=== PATIENT | female | born 1945 | race African-American/Black ===

== ENCOUNTER → 2016-06-11 | Outpatient (CLI) | payer OTHER ==
[~2016-06-11] MED LIST: BECL0.07 INH; FLU05NSL; LISI10TA6 PO; METO25TA62 PO; ROPI0.5T PO; SIMV-8 PO; SPIR25TA89 PO
[2016-06-11 11:25] LABS: Basophils # (auto) 0.2 uL; Basophils % (auto) 2.6 % (0.0-2.0); Eosinophils # (auto) 0.3 uL; Eosinophils % (auto) 4.5 % (0.0-7.0); Hematocrit 42.3 % (36.0-46.0); Hemoglobin 13.2 g/dL (12.2-16.2); Lymphocytes # (auto) 2.1 uL; Lymphocytes % (auto) 35.7 % (10.0-50.0); Mean Corpuscular Hemoglobin 28.5 pg (28.0-32.0); Mean Corpuscular Hgb Conc. 31.3 g/dL (32.0-36.0); Mean Corpuscular Volume 91.1 fL (80.0-100.0); Mean Platelet Volume 7.4 fL (7.4-10.4); Monocytes # (auto) 0.4 uL; Neutrophils # (auto) 2.8 uL; Neutrophils % (auto) 50.2 % (37.0-80.0); Platelet Count (auto) 317 10^3/uL (140-450); Red Cell Distribution Width 12.6 % (11.6-16.0); Urine Bilirubin Negative (Negative); Urine Blood TRACE /uL (Negative); Urine Color Yellow (Yellow); Urine Glucose Normal (Normal); Urine Ketone Negative (Negative); Urine Nitrite Negative (Negative); Urine RBC 3 /hpf (0 - 4); Urine Urobilinogen Normal (Negative); Urine pH 5.5 (5.0-8.0); White Blood Cell 5.8 10^3/uL (4.4-10.8)
[2016-06-11 11:43] LABS: BUN/Creatinine Ratio 22.8; Bilirubin, Total 0.4 mg/dL (0.2-1.0); Calcium 9.7 mg/dL (8.5-10.1); Potassium 4.1 mmol/L (3.5-5.1); Total Protein 7.6 g/dL (6.4-8.2); Uric Acid 3.7 mg/dL (2.6-6.0)
== END | disposition home or self-care (01) ==
LOC: LAB 09:52
DX: M25.50 Pain in unspecified joint (principal); I10 Essential (primary) hypertension; Z12.11 Encounter for screening for malignant neoplasm of colon
CPT/HCPCS: 36415; 80053; 80061; 81001; 84443; 84550; 85025; 85049; 85652; 86200; 86431

== ENCOUNTER → 2016-06-16 | Outpatient (CLI) | payer OTHER | END | disposition home or self-care (01) | LOC: LAB 08:43 | DX: M25.50 Pain in unspecified joint (principal); I10 Essential (primary) hypertension; Z12.11 Encounter for screening for malignant neoplasm of colon | CPT/HCPCS: 82270 ==

== ENCOUNTER → 2016-09-29 | Outpatient (CLI) | payer OTHER ==
[2016-09-29 13:49] LABS: Basophils # (auto) 0.1 uL; Basophils % (auto) 0.7 % (0.0-2.0); Eosinophils # (auto) 0.3 uL; Eosinophils % (auto) 4.1 % (0.0-7.0); Hematocrit 44.5 % (36.0-46.0); Hemoglobin 14.7 g/dL (12.2-16.2); Lymphocytes # (auto) 2.8 uL; Lymphocytes % (auto) 37.2 % (10.0-50.0); Mean Corpuscular Hemoglobin 29.6 pg (28.0-32.0); Mean Corpuscular Volume 89.8 fL (80.0-100.0); Mean Platelet Volume 7.4 fL (7.4-10.4); Monocytes # (auto) 0.2 uL; Monocytes % (auto) 2.7 % (0.0-12.0); Neutrophils # (auto) 4.1 uL; Neutrophils % (auto) 55.3 % (37.0-80.0); Platelet Count (auto) 302 10^3/uL (140-450); Red Cell Distribution Width 12.9 % (11.6-16.0); White Blood Cell 7.4 10^3/uL (4.4-10.8)
[2016-09-29 13:50] LABS: Urine Bilirubin Negative (Negative); Urine Blood 1+ /uL (Negative); Urine Color Yellow (Yellow); Urine Glucose Normal (Normal); Urine Ketone Negative (Negative); Urine Nitrite Negative (Negative); Urine RBC <1 /hpf (0 - 4); Urine Squamous Epithelial Cell FEW /hpf (<5); Urine Urobilinogen Normal (Negative)
[2016-09-29 14:07] LABS: Albumin 4.2 g/dL (3.4-5.0); Bilirubin, Total 0.6 mg/dL (0.2-1.0); Calcium 9.4 mg/dL (8.5-10.1); Potassium 3.7 mmol/L (3.5-5.1); Total Protein 8.2 g/dL (6.4-8.2)
== END | disposition home or self-care (01) ==
LOC: LAB 13:16
DX: I10 Essential (primary) hypertension (principal)
CPT/HCPCS: 36415; 80053; 80061; 81001; 82306; 84443; 85025

== ENCOUNTER 2016-10-12 08:41 | Emergency (ER) | payer OTHER ==
[~2016-10-12] VITALS: Ht 154.9 cm; Wt 53.5 kg
[2016-10-12 08:57] VITALS: BP 144/88
== END 2016-10-12 09:44 | disposition home or self-care (01) ==
LOC: ER 08:44
DX: J32.9 Chronic sinusitis, unspecified (principal); J45.909 Unspecified asthma, uncomplicated; E11.9 Type 2 diabetes mellitus without complications; I10 Essential (primary) hypertension

== ENCOUNTER 2016-12-20 09:25 | Emergency (ER) | payer OTHER ==
[~2016-12-20] VITALS: Ht 154.9 cm; Wt 34.5 kg
[2016-12-20 09:54] VITALS: BP 138/75
[2016-12-20] MEDS ORDERED: KETOROLAC TROMETH 30 MG/ML 1ML VIAL IM ONE (10:30)
== END 2016-12-20 10:48 | disposition home or self-care (01) ==
LOC: ER 09:25
DX: G43.909 Migraine, unspecified, not intractable, without status migrainosus (principal); H66.92 Otitis media, unspecified, left ear; J45.909 Unspecified asthma, uncomplicated; E11.9 Type 2 diabetes mellitus without complications; I10 Essential (primary) hypertension
CPT/HCPCS: 70450; 96372; 99284; J1885

== ENCOUNTER → 2017-03-30 | Outpatient (CLI) | payer OTHER ==
[2017-03-30 12:55] LABS: Potassium 3.6 mmol/L (3.5-5.1)
== END | disposition home or self-care (01) ==
LOC: LAB 12:19
PROVIDERS: ATTEND Internal Medicine
DX: I10 Essential (primary) hypertension (principal); E78.00 Pure hypercholesterolemia, unspecified
CPT/HCPCS: 36415; 84132; 84450; 84460

== ENCOUNTER → 2017-11-11 | Outpatient (CLI) | payer OTHER ==
[2017-11-11 12:20] LABS: Basophils # (auto) 0 uL; Basophils % (auto) 0.7 % (0.0-2.0); Eosinophils # (auto) 0.2 uL; Hematocrit 41.6 % (36.0-46.0); Hemoglobin 13.7 g/dL (12.2-16.2); Lymphocytes # (auto) 2.2 uL; Lymphocytes % (auto) 39.9 % (10.0-50.0); Mean Corpuscular Hemoglobin 29.8 pg (28.0-32.0); Mean Corpuscular Volume 90.2 fL (80.0-100.0); Monocytes # (auto) 0.3 uL; Monocytes % (auto) 4.9 % (0.0-12.0); Neutrophils # (auto) 2.8 uL; Neutrophils % (auto) 50.5 % (37.0-80.0); Nucleated Red Blood Cells % 0.1 %; Platelet Count (auto) 298 10^3/uL (140-450); Red Blood Cells 4.62 10^6/uL (4.0-5.20); Red Cell Distribution Width 12.9 % (11.8-14.3); White Blood Cell 5.4 10^3/uL (4.4-10.8)
[2017-11-11 12:45] LABS: Urine Bacteria NONE SEEN /hpf (None Seen); Urine Blood Negative /uL (Negative); Urine Specific Gravity 1.015 (1.001-1.035); Urine WBC 1 /hpf (0 - 5)
[2017-11-11 13:39] LABS: Albumin 4.2 g/dL (3.4-5.0); BUN/Creatinine Ratio 17.1; Bilirubin, Total 0.5 mg/dL (0.2-1.0); Calcium 9.5 mg/dL (8.5-10.1); Magnesium 2.7 mg/dL (1.6-2.6); Potassium 3.5 mmol/L (3.5-5.1); Total Protein 8.3 g/dL (6.4-8.2)
[2017-11-12 10:07] LABS: Immunoglobulin G, Serum 950 mg/dL (700-1600)
== END | disposition home or self-care (01) ==
LOC: LAB 11:30
PROVIDERS: ATTEND Internal Medicine
DX: I10 Essential (primary) hypertension (principal); J30.9 Allergic rhinitis, unspecified; M81.0 Age-related osteoporosis without current pathological fracture; G25.81 Restless legs syndrome; E78.00 Pure hypercholesterolemia, unspecified; E11.9 Type 2 diabetes mellitus without complications
CPT/HCPCS: 36415; 80053; 80061; 81001; 82043; 82306; 82784; 83735; 84439; 84443; 85025; 85652

== ENCOUNTER → 2018-04-28 | Outpatient (CLI) | payer OTHER ==
[~2018-04-28] MED LIST changes: +SPIR25TA8 PO; -SPIR25TA89 PO
[2018-04-28 11:39] LABS: Potassium 4.3 mmol/L (3.5-5.1)
== END | disposition home or self-care (01) ==
LOC: LAB 10:49
PROVIDERS: ATTEND Internal Medicine
DX: I10 Essential (primary) hypertension (principal); G25.81 Restless legs syndrome; E78.5 Hyperlipidemia, unspecified
CPT/HCPCS: 36415; 84132; 84450; 84460

== ENCOUNTER → 2018-09-29 | Outpatient (CLI) | payer OTHER ==
[2018-09-29 12:55] LABS: Basophils # (auto) 0.1 uL; Basophils % (auto) 0.8 % (0.0-2.0); Eosinophils # (auto) 0.2 uL; Eosinophils % (auto) 3.6 % (0.0-7.0); Hematocrit 41.8 % (36.0-46.0); Lymphocytes # (auto) 2.2 uL; Lymphocytes % (auto) 34.6 % (10.0-50.0); Mean Corpuscular Hemoglobin 30.4 pg (28.0-32.0); Mean Corpuscular Hgb Conc. 33.5 g/dL (32.0-36.0); Mean Corpuscular Volume 90.9 fL (80.0-100.0); Monocytes # (auto) 0.3 uL; Monocytes % (auto) 4.9 % (0.0-12.0); Neutrophils # (auto) 3.5 uL; Neutrophils % (auto) 56.1 % (37.0-80.0); Platelet Count (auto) 300 10^3/uL (140-450); Red Cell Distribution Width 13.3 % (11.8-14.3); White Blood Cell 6.3 10^3/uL (4.4-10.8)
[2018-09-29 13:15] LABS: Urine Bacteria NONE SEEN /hpf (None Seen); Urine Blood TRACE /uL (Negative); Urine WBC <1 /hpf (0 - 5)
[2018-09-29 13:31] LABS: Albumin 4.4 g/dL (3.4-5.0); Calcium 9.9 mg/dL (8.5-10.1); Potassium 3.8 mmol/L (3.5-5.1)
[2018-09-29 13:35] LABS: BUN/Creatinine Ratio 16.5; Bilirubin, Total 0.5 mg/dL (0.2-1.0); Total Protein 8.2 g/dL (6.4-8.2)
== END | disposition home or self-care (01) ==
LOC: LAB 12:02
PROVIDERS: ATTEND Internal Medicine
DX: I10 Essential (primary) hypertension (principal); M81.8 Other osteoporosis without current pathological fracture
CPT/HCPCS: 36415; 80053; 80061; 81001; 82043; 82306; 84439; 84443; 85025; 85652

== ENCOUNTER → 2019-04-11 | Outpatient (CLI) | payer OTHER ==
[~2019-04-11] MED LIST changes: -ROPI0.5T PO; +ROPI0.5T16 PO
[2019-04-11 10:45] LABS: Urine Bacteria NONE SEEN /hpf (None Seen); Urine Blood Negative /uL (Negative); Urine Mucus FEW (None Seen); Urine Specific Gravity 1.012 (1.001-1.035); Urine WBC 1 /hpf (0 - 5)
[2019-04-11 11:13] LABS: Basophils # (auto) 0.1 uL; Basophils % (auto) 1.3 % (0.0-2.0); Eosinophils # (auto) 0.2 uL; Eosinophils % (auto) 3.6 % (0.0-7.0); Hematocrit 38.5 % (36.0-46.0); Hemoglobin 13.2 g/dL (12.2-16.2); Lymphocytes % (auto) 30.7 % (10.0-50.0); Mean Corpuscular Hemoglobin 30.3 pg (28.0-32.0); Mean Corpuscular Hgb Conc. 34.2 g/dL (32.0-36.0); Mean Corpuscular Volume 88.8 fL (80.0-100.0); Monocytes # (auto) 0.3 uL; Neutrophils # (auto) 3.8 uL; Neutrophils % (auto) 59.4 % (37.0-80.0); Platelet Count (auto) 296 10^3/uL (140-450); Red Blood Cells 4.34 10^6/uL (4.0-5.20); Red Cell Distribution Width 13.3 % (11.8-14.3); White Blood Cell 6.4 10^3/uL (4.4-10.8)
[2019-04-11 11:17] LABS: Albumin 4.3 g/dL (3.4-5.0); BUN/Creatinine Ratio 19.2; Bilirubin, Total 0.4 mg/dL (0.2-1.0); Calcium 9.7 mg/dL (8.5-10.1); Total Protein 8.3 g/dL (6.4-8.2); Uric Acid 3.4 mg/dL (2.6-6.0)
== END | disposition home or self-care (01) ==
LOC: LAB 10:19
PROVIDERS: ATTEND Internal Medicine
DX: E78.5 Hyperlipidemia, unspecified (principal); M25.50 Pain in unspecified joint; R10.2 Pelvic and perineal pain
CPT/HCPCS: 36415; 80053; 81001; 84550; 85025; 86200; 86431

== ENCOUNTER → 2019-06-23 | Outpatient (CLI) | payer OTHER ==
[~2019-06-23] MED LIST changes: -METO25TA62 PO; +METO25TA93 PO
== END | disposition home or self-care (01) ==
LOC: LAB 12:18
PROVIDERS: ATTEND Internal Medicine
DX: M25.549 Pain in joints of unspecified hand (principal)
CPT/HCPCS: 36415; 82607; 82784; 84550; 86225; 86235; 86334

== ENCOUNTER → 2019-07-21 | Outpatient (CLI) | payer OTHER | END | disposition home or self-care (01) | LOC: LAB 09:38 | PROVIDERS: ATTEND Specialist | DX: N83.299 Other ovarian cyst, unspecified side (principal) | CPT/HCPCS: 82378; 86301; 86304 ==

== ENCOUNTER → 2019-11-14 | Outpatient (CLI) | payer OTHER ==
[2019-11-14 11:19] LABS: Basophils # (auto) 0 10 ^3/uL (0-0.2); Basophils % (auto) 0.1 % (0.0-2.0); Eosinophils # (auto) 0.2 10 ^3/uL (0-0.8); Eosinophils % (auto) 2.3 % (0.0-7.0); Hematocrit 40.5 % (36.0-46.0); Hemoglobin 13.2 g/dL (12.2-16.2); Lymphocytes # (auto) 2.1 10 ^3/uL (0.4-5.4); Lymphocytes % (auto) 30.6 % (10.0-50.0); Mean Corpuscular Hemoglobin 29.9 pg (28.0-32.0); Mean Corpuscular Hgb Conc. 32.6 g/dL (32.0-36.0); Mean Corpuscular Volume 91.9 fL (80.0-100.0); Monocytes # (auto) 0.4 10 ^3/uL (0-1.3); Monocytes % (auto) 5.4 % (0.0-12.0); Neutrophils # (auto) 4.2 10 ^3/uL (1.6-8.6); Neutrophils % (auto) 61.6 % (37.0-80.0); Nucleated Red Blood Cells % 0.1 %; Platelet Count (auto) 275 10^3/uL (140-450); Red Blood Cells 4.41 10^6/uL (4.0-5.20); White Blood Cell 6.8 10^3/uL (4.4-10.8)
[2019-11-14 12:03] LABS: Potassium 3.4 mmol/L (3.5-5.1)
[2019-11-14 12:06] LABS: Urine Bacteria NONE SEEN /hpf (None Seen); Urine Blood TRACE /uL (Negative); Urine Specific Gravity 1.014 (1.001-1.035); Urine WBC 1 /hpf (0 - 5)
[2019-11-14 12:13] LABS: Albumin 3.8 g/dL (3.4-5.0); BUN/Creatinine Ratio 22.8; Bilirubin, Total 0.4 mg/dL (0.2-1.0); Calcium 9.4 mg/dL (8.5-10.1); Total Protein 7.7 g/dL (6.4-8.2)
== END | disposition home or self-care (01) ==
LOC: LAB 10:52
PROVIDERS: ATTEND Internal Medicine
DX: I10 Essential (primary) hypertension (principal)
CPT/HCPCS: 36415; 80053; 80061; 81001; 84439; 84443; 85025; 85652

== ENCOUNTER → 2020-01-09 | Outpatient (CLI) | payer OTHER ==
[~2020-01-09] MED LIST changes: +LISI-648 PO; -LISI10TA6 PO
== END | disposition home or self-care (01) ==
LOC: LAB 11:34
PROVIDERS: ATTEND Internal Medicine
DX: Z01.812 Encounter for preprocedural laboratory examination (principal)
CPT/HCPCS: 36415; 82565; 84520

== ENCOUNTER → 2020-01-24 | Outpatient (CLI) | payer OTHER | END | disposition home or self-care (01) | LOC: LAB 10:28 | PROVIDERS: ATTEND Internal Medicine | DX: R22.0 Localized swelling, mass and lump, head (principal); R07.0 Pain in throat | CPT/HCPCS: 36415; 82565; 84520 ==

== ENCOUNTER → 2020-02-20 | Outpatient (CLI) | payer OTHER ==
[2020-02-20 10:37] LABS: Urine Bacteria NONE SEEN /hpf (None Seen); Urine Blood TRACE /uL (Negative); Urine Specific Gravity 1.011 (1.001-1.035); Urine WBC <1 /hpf (0 - 5)
== END | disposition home or self-care (01) ==
LOC: LAB 10:02
PROVIDERS: ATTEND Specialist
DX: N39.0 Urinary tract infection, site not specified (principal)
CPT/HCPCS: 81001

== ENCOUNTER → 2020-08-24 | Outpatient (CLI) | payer OTHER ==
[2020-08-24 11:11] LABS: Basophils # (auto) 0.1 10 ^3/uL (0-0.2); Basophils % (auto) 0.8 % (0.0-2.0); Eosinophils # (auto) 0.2 10 ^3/uL (0-0.8); Eosinophils % (auto) 2.3 % (0.0-7.0); Hematocrit 40.7 % (36.0-46.0); Hemoglobin 13.7 g/dL (12.2-16.2); Lymphocytes # (auto) 2.9 10 ^3/uL (0.4-5.4); Mean Corpuscular Hemoglobin 30.8 pg (28.0-32.0); Mean Corpuscular Hgb Conc. 33.6 g/dL (32.0-36.0); Mean Corpuscular Volume 91.7 fL (80.0-100.0); Monocytes # (auto) 0.4 10 ^3/uL (0-1.3); Monocytes % (auto) 5.8 % (0.0-12.0); Neutrophils # (auto) 4.2 10 ^3/uL (1.6-8.6); Neutrophils % (auto) 54.1 % (37.0-80.0); Nucleated Red Blood Cells % 0.1 %; Platelet Count (auto) 298 10^3/uL (140-450); Red Blood Cells 4.44 10^6/uL (4.0-5.20); White Blood Cell 7.7 10^3/uL (4.4-10.8)
[2020-08-24 11:43] LABS: Calcium 9.5 mg/dL (8.5-10.1); Potassium 4.1 mmol/L (3.5-5.1)
[2020-08-24 11:49] LABS: Albumin 3.9 g/dL (3.4-5.0); BUN/Creatinine Ratio 26.6; Bilirubin, Total 0.5 mg/dL (0.2-1.0); Magnesium 2.4 mg/dL (1.6-2.6); Total Protein 7.6 g/dL (6.4-8.2)
[2020-08-24 11:58] LABS: Free T4 (Free Thyroxine) 1.38 ng/dL (0.89-1.76)
[2020-08-25 08:06] LABS: Immunoglobulin G, Serum 1043 mg/dL (586-1602)
== END | disposition home or self-care (01) ==
LOC: LAB 10:32
PROVIDERS: ATTEND Internal Medicine
DX: I10 Essential (primary) hypertension (principal); K21.9 Gastro-esophageal reflux disease without esophagitis; M81.0 Age-related osteoporosis without current pathological fracture
CPT/HCPCS: 36415; 80053; 82306; 82607; 82784; 83735; 84439; 84443; 85025; 85652; 86334

== ENCOUNTER → 2021-08-14 | Outpatient (CLI) | payer OTHER ==
[~2021-08-14] MED LIST changes: -LISI-648 PO; +LISI-716 PO
[2021-08-14 11:38] LABS: Basophils # (auto) 0.1 10 ^3/uL (0-0.2); Basophils % (auto) 0.7 % (0.0-2.0); Eosinophils # (auto) 0.2 10 ^3/uL (0-0.8); Eosinophils % (auto) 2.1 % (0.0-7.0); Hematocrit 40.3 % (36.0-46.0); Hemoglobin 13.3 g/dL (12.2-16.2); Lymphocytes # (auto) 2.8 10 ^3/uL (0.4-5.4); Lymphocytes % (auto) 32.6 % (10.0-50.0); Mean Corpuscular Hemoglobin 29.6 pg (28.0-32.0); Mean Corpuscular Volume 89.8 fL (80.0-100.0); Monocytes # (auto) 0.3 10 ^3/uL (0-1.3); Monocytes % (auto) 3.5 % (0.0-12.0); Neutrophils # (auto) 5.1 10 ^3/uL (1.6-8.6); Neutrophils % (auto) 61.1 % (37.0-80.0); Red Blood Cells 4.48 10^6/uL (4.0-5.20); White Blood Cell 8.4 10^3/uL (4.4-10.8)
[2021-08-14 12:08] LABS: Potassium 3.7 mmol/L (3.5-5.1)
[2021-08-14 12:17] LABS: Albumin 3.8 g/dL (3.4-5.0); BUN/Creatinine Ratio 13.5; Bilirubin, Total 0.3 mg/dL (0.2-1.0); Calcium 9.5 mg/dL (8.5-10.1); Magnesium 2.7 mg/dL (1.6-2.6); Total Protein 7.7 g/dL (6.4-8.2)
== END | disposition home or self-care (01) ==
LOC: LAB 11:03
PROVIDERS: ATTEND Internal Medicine
DX: I10 Essential (primary) hypertension (principal); G25.81 Restless legs syndrome; F19.939 Other psychoactive substance use, unspecified with withdrawal, unspecified
CPT/HCPCS: 36415; 80053; 82306; 83540; 83735; 85025

== ENCOUNTER 2021-11-25 07:14 | Emergency (ER) | payer OTHER ==
[~2021-11-25] VITALS: Ht 167.6 cm; Wt 59.0 kg
[2021-11-25 07:30] VITALS: BP 136/79
[2021-11-25 08:05] LABS: Basophils # (auto) 0.1 10 ^3/uL (0-0.2); Basophils % (auto) 0.8 % (0.0-2.0); Eosinophils # (auto) 0.2 10 ^3/uL (0-0.8); Eosinophils % (auto) 3.9 % (0.0-7.0); Hematocrit 37.8 % (36.0-46.0); Hemoglobin 12.4 g/dL (12.2-16.2); Lymphocytes # (auto) 1.4 10 ^3/uL (0.4-5.4); Lymphocytes % (auto) 22.6 % (10.0-50.0); Mean Corpuscular Hemoglobin 29.2 pg (28.0-32.0); Mean Corpuscular Hgb Conc. 32.9 g/dL (32.0-36.0); Mean Corpuscular Volume 88.8 fL (80.0-100.0); Monocytes # (auto) 0.6 10 ^3/uL (0-1.3); Monocytes % (auto) 9.2 % (0.0-12.0); Neutrophils # (auto) 4.1 10 ^3/uL (1.6-8.6); Neutrophils % (auto) 63.5 % (37.0-80.0); Red Blood Cells 4.25 10^6/uL (4.0-5.20); Red Cell Distribution Width 12.6 % (11.8-14.3); White Blood Cell 6.4 10^3/uL (4.4-10.8)
[2021-11-25 08:23] LABS: Albumin 3.3 g/dL (3.4-5.0); Calcium 9.2 mg/dL (8.5-10.1)
[2021-11-25 08:26] LABS: Bilirubin, Total 0.3 mg/dL (0.2-1.0); Total Protein 7.2 g/dL (6.4-8.2)
[2021-11-25 08:30] LABS: Potassium 2.9 mmol/L (3.5-5.1)
[2021-11-25 08:39] LABS: BUN/Creatinine Ratio 16.1
[2021-11-25] MEDS ORDERED: metroNIDAZOLE 500MG/100ML 100 ML IV ONE (09:15)
[2021-11-25] MEDS ORDERED: SODIUM CHLORIDE 0.9% 1,000 ML IV ONE (09:15)
[2021-11-25] MEDS ORDERED: cefTRIAXone 1GM/50ML D5W 50 ML IV ONE (09:15)
[2021-11-25] MEDS ORDERED: LEVO-28 PO (09:25)
[2021-11-25] MEDS ORDERED: METR500T PO (09:25)
[2021-11-25] MEDS ORDERED: POTASSIUM EFFERVESENT TAB 25 MEQ PO ONE (09:30)
[2021-11-25 09:37] LABS: Urine Bacteria NONE SEEN /hpf (None Seen); Urine Blood 1+ /uL (Negative); Urine Hyaline Cast FEW /lpf (0 - 2); Urine Mucus FEW (None Seen); Urine Specific Gravity 1.023 (1.001-1.035); Urine WBC 1 /hpf (0 - 5)
== END 2021-11-25 11:53 | disposition home or self-care (01) ==
LOC: ER 07:14
DX: K52.9 Noninfective gastroenteritis and colitis, unspecified (principal); E87.6 Hypokalemia; E11.9 Type 2 diabetes mellitus without complications; I10 Essential (primary) hypertension; E78.5 Hyperlipidemia, unspecified; J45.909 Unspecified asthma, uncomplicated; Z88.2 Allergy status to sulfonamides; Z88.8 Allergy status to other drugs, medicaments and biological substances
CPT/HCPCS: 36415; 74176; 80053; 81001; 85025; 93005; 96365; 96366; 96368; 99285; J0696; J3490; J7030

== ENCOUNTER → 2021-12-02 | Outpatient (CLI) | payer OTHER ==
[~2021-12-02] MED LIST changes: +LEVO-28 PO; +METR500T PO
[2021-12-02 15:25] LABS: BUN/Creatinine Ratio 14.1; Calcium 9.2 mg/dL (8.5-10.1); Potassium 3.4 mmol/L (3.5-5.1)
== END | disposition home or self-care (01) ==
LOC: LAB 14:54
PROVIDERS: ATTEND Internal Medicine
DX: E87.6 Hypokalemia (principal); I10 Essential (primary) hypertension
CPT/HCPCS: 36415; 80048

== ENCOUNTER → 2021-12-10 | Outpatient (CLI) | payer OTHER | END | disposition home or self-care (01) | LOC: LAB 11:21 | PROVIDERS: ATTEND Internal Medicine | DX: R19.7 Diarrhea, unspecified (principal) | CPT/HCPCS: 87045; 87177; 87427; 87493 ==

== ENCOUNTER 2021-12-13 13:51 | Emergency (ER) | payer OTHER ==
[~2021-12-13] VITALS: Ht 154.9 cm; Wt 63.2 kg
[2021-12-13] MEDS ORDERED: SODIUM CHLORIDE 0.9% 1,000 ML IV ONE (15:00)
[2021-12-13] MEDS ORDERED: LOPERAMIDE HCL 2 MG CAP/TAB PO ONE (15:00)
[2021-12-13 15:26] LABS: Albumin 3.8 g/dL (3.4-5.0); BUN/Creatinine Ratio 13.9; Calcium 8.9 mg/dL (8.5-10.1); Potassium 4.1 mmol/L (3.5-5.1)
[2021-12-13 15:28] LABS: Basophils # (auto) 0 10 ^3/uL (0-0.2); Basophils % (auto) 0.3 % (0.0-2.0); Eosinophils # (auto) 0 10 ^3/uL (0-0.8); Hematocrit 41.6 % (36.0-46.0); Hemoglobin 13.2 g/dL (12.2-16.2); Lymphocytes # (auto) 0.4 10 ^3/uL (0.4-5.4); Lymphocytes % (auto) 2.3 % (10.0-50.0); Mean Corpuscular Hemoglobin 28.5 pg (28.0-32.0); Mean Corpuscular Hgb Conc. 31.8 g/dL (32.0-36.0); Mean Corpuscular Volume 89.7 fL (80.0-100.0); Monocytes # (auto) 0.3 10 ^3/uL (0-1.3); Monocytes % (auto) 1.6 % (0.0-12.0); Neutrophils # (auto) 15.3 10 ^3/uL (1.6-8.6); Neutrophils % (auto) 95.8 % (37.0-80.0); Red Blood Cells 4.64 10^6/uL (4.0-5.20); Red Cell Distribution Width 13.5 % (11.8-14.3); White Blood Cell 15.9 10^3/uL (4.4-10.8)
[2021-12-13 15:29] LABS: Bilirubin, Total 0.6 mg/dL (0.2-1.0); Total Protein 7.8 g/dL (6.4-8.2)
[2021-12-13 16:38] LABS: Urine Bacteria NONE SEEN /hpf (None Seen); Urine Blood 1+ /uL (Negative); Urine Budding Yeast MODERATE /hpf (None Seen); Urine Mucus FEW (None Seen); Urine Specific Gravity 1.018 (1.001-1.035); Urine WBC 4 /hpf (0 - 5)
[2021-12-13] MEDS ORDERED: AZITHROMYCIN 250 MG TAB PO ONE (16:45)
[2021-12-13] MEDS ORDERED: IOHEXOL 300 MG/ML 100ML BOTTLE IJ ONE (17:42)
[2021-12-13 17:57] VITALS: BP 126/74
[2021-12-13] MEDS ORDERED: AZIT250T9 PO (20:04)
== END 2021-12-13 20:41 | disposition home or self-care (01) ==
LOC: ER 13:51
DX: K52.9 Noninfective gastroenteritis and colitis, unspecified (principal); I10 Essential (primary) hypertension; E11.9 Type 2 diabetes mellitus without complications; E78.5 Hyperlipidemia, unspecified; J45.909 Unspecified asthma, uncomplicated; Z79.899 Other long term (current) drug therapy; Z88.6 Allergy status to analgesic agent; Z88.2 Allergy status to sulfonamides; Z88.8 Allergy status to other drugs, medicaments and biological substances
CPT/HCPCS: 36415; 74177; 80053; 81001; 85025; 93005; 96360; 99285; J7030; Q9967

== ENCOUNTER → 2022-04-04 | Outpatient (CLI) | payer OTHER ==
[~2022-04-04] MED LIST changes: +AZIT250T9 PO
== END | disposition home or self-care (01) ==
LOC: LAB 13:29
PROVIDERS: ATTEND Internal Medicine
DX: R30.0 Dysuria (principal)
CPT/HCPCS: 87086

== ENCOUNTER → 2022-04-21 | Outpatient (CLI) | payer OTHER | END | disposition home or self-care (01) | LOC: XYW 09:24 | PROVIDERS: ATTEND Internal Medicine | DX: I07.1 Rheumatic tricuspid insufficiency (principal); I10 Essential (primary) hypertension; R00.2 Palpitations | CPT/HCPCS: 93306 ==

== ENCOUNTER → 2022-05-01 | Outpatient (CLI) | payer OTHER ==
[2022-05-01 11:08] LABS: BUN/Creatinine Ratio 16.5; Calcium 10.1 mg/dL (8.5-10.1)
== END | disposition home or self-care (01) ==
LOC: LAB 10:05
PROVIDERS: ATTEND Urology
DX: R30.0 Dysuria (principal); R35.1 Nocturia
CPT/HCPCS: 36415; 80048

== ENCOUNTER → 2022-08-11 | Outpatient (CLI) | payer OTHER | END | disposition home or self-care (01) | LOC: LAB 09:50 | PROVIDERS: ATTEND Internal Medicine | DX: I73.9 Peripheral vascular disease, unspecified (principal) | CPT/HCPCS: 36415; 82565; 84520 ==

== ENCOUNTER → 2022-08-27 | Outpatient (CLI) | payer OTHER ==
[2022-08-27 15:33] LABS: Calcium 9.3 mg/dL (8.5-10.1); Potassium 4.1 mmol/L (3.5-5.1)
[2022-08-27 15:35] LABS: BUN/Creatinine Ratio 17.4 (10.0-20.0)
[2022-08-28 07:20] LABS: Urine Bacteria NONE SEEN /hpf (None Seen); Urine Blood Negative /uL (Negative); Urine Mucus FEW (None Seen); Urine Specific Gravity 1.024 (1.001-1.035); Urine WBC 1 /hpf (0 - 5)
== END | disposition home or self-care (01) ==
LOC: LAB 14:38
PROVIDERS: ATTEND Urology
DX: N39.0 Urinary tract infection, site not specified (principal); R31.29 Other microscopic hematuria; R30.0 Dysuria
CPT/HCPCS: 36415; 80048; 81001; 87086

== ENCOUNTER → 2022-10-02 | Outpatient (CLI) | payer OTHER | END | disposition home or self-care (01) | LOC: LAB 12:22 | PROVIDERS: ATTEND Internal Medicine | DX: Z01.812 Encounter for preprocedural laboratory examination (principal); N94.89 Other specified conditions associated with female genital organs and menstrual cycle | CPT/HCPCS: 36415; 82565; 84520 ==